=== PATIENT | female | born 1970 | race Caucasian/White ===

== ENCOUNTER 2017-02-12 17:14 | Emergency (ER) | payer MEDICAID ==
[~2017-02-12] VITALS: Ht 167.6 cm; Wt 81.6 kg
[~2017-02-12 17:14] MED LIST: MOTRIN800 MG PO; PROAIR HFA0.09 MG/Ac IH; TYLENOL ES500 MG PO
--- NOTE | 2017-02-12 17:19 | NUR ---
EKG completed in triage room by EMT.
[2017-02-12 17:22] VITALS: BP 142/70
--- NOTE | 2017-02-12 19:17 | NUR ---
CALLED BY SHAUNNA ESPINOSA;NO ANSWER
--- NOTE | 2017-02-12 20:20 | NUR ---
PATIENT LEFT WITHOUT BEING SEEN BY DR. DANIELSON. NO FURTHER CARE PROVIDED FOR PATIENT.
== END 2017-02-12 20:20 | disposition left against medical advice (07) ==
LOC: MED 17:14
DX: R07.89 Other chest pain (principal); R05 Cough; Z53.21 Procedure and treatment not carried out due to patient leaving prior to being seen by health care provider

== ENCOUNTER 2018-11-20 02:09 | Emergency (ER) | payer MEDICAID ==
[~2018-11-20] VITALS: Ht 165.1 cm; Wt 86.2 kg
[~2018-11-20 02:09] MED LIST changes: +ACET-6134 PO; +ALBU-136 IH; +IBUP-974 PO; -MOTRIN800 MG PO; -PROAIR HFA0.09 MG/Ac IH; -TYLENOL ES500 MG PO
--- NOTE | 2018-11-20 02:18 | NUR ---
PT AMBULATED TO LOBBY WITH VSS.
--- NOTE | 2018-11-20 02:30 | NUR ---
PT BIB SELF C/O DYSPNEA X3 DAYS. PT STATES SHE RAN OUT OF HER INHALER AND IS HAVING A HARD TIME CATHCHING HER BREATH W/ ACTIVITY. AUDIBLE WHEEZING IN MARK LOBE. BREATHING IS SYMETTRICAL, DYPNEA WHEN TALKING. --SKIN DRY, WARM AND SMALL SCABS ON BL ARMS. AAOX4. DENIES N/V/D, CP OR LOC. CLEAR SPEECH. CAP REFIL <3. --PT IN GOWN IN BED; BED IN LOWER LOCKED POSITION; BEDRAILS UP X2. ER MD MADE AWARE OF PT STATUS. PMH: ASTHMA RX: ALBUTEROL INHALER
[2018-11-20] MEDS ORDERED: ALBUTEROL SULFATE/IPRATROPIU 3 ML SOL IH ONE (02:35)
[2018-11-20] MEDS ORDERED: predniSONE 20 MG TAB PO ONE (02:40)
--- NOTE | 2018-11-20 02:40 | NUR ---
RT AT BEDSIDE FOR TREATMENT.
--- NOTE | 2018-11-20 03:50 | NUR ---
Patient discharged with v/s stable. Written and verbal after care instructions given and explained. Patient alert, oriented and verbalized understanding of instructions. Ambulatory with steady gait. All questions addressed prior to discharge. ID band removed. Patient advised to follow up with PMD. Rx of Prednisone, and Albuterol Inhalation Aerosol with spacer given. Patient educated on indication of medication including possible reaction and side effects. Opportunity to ask questions provided and answered.
[2018-11-20 03:53] VITALS: BP 138/49
== END 2018-11-20 03:50 | disposition home or self-care (01) ==
LOC: MED 02:09
DX: J45.901 Unspecified asthma with (acute) exacerbation (principal); Z79.899 Other long term (current) drug therapy
CPT/HCPCS: 94640; 99283; J7512; J7620